=== PATIENT | female | born 1935 | race Caucasian/White ===

== ENCOUNTER 2016-12-23 10:31 | Inpatient (IN) | payer MEDICARE, OTHER ==
[~2016-12-23] VITALS: Ht 160 cm; Wt 49.9 kg
--- NOTE | 2016-12-23 10:40 | NUR ---
AAOX2, JOSE MIGUEL FROM [facility] C/O LEFT HIP PAIN, NO OBVIOUS TRAUMA OR INJURY NOTED. SKIN IS WARM AND DRY. ASSISTED TO HOSPITAL GOWN. PLACED ON MONITOR. WILL CONTINUOUSLY MONITOR THE PATIENT. DR KAUFMAN AT FOR EVAL.
[2016-12-23] MEDS ORDERED: OLANZAPINE 5 MG TABLET ONE ×2 (10:42→11:32)
[2016-12-23] MEDS ORDERED: LORAZEPAM 1 MG TABLET ONE (10:46)
[2016-12-23] MEDS ORDERED: OLANZAPINE 5 MG/TAB.RAPDIS PO ONE ×2 (11:00→11:30)
[2016-12-23] MEDS ORDERED: LORAZEPAM 1 MG TABLET PO ONE (11:00)
[2016-12-23] MEDS ORDERED: PANT40TA4 PO (11:06)
[2016-12-23] MEDS ORDERED: INSU100V11 SQ (11:06)
[2016-12-23] MEDS ORDERED: SITA1TAB2 PO (11:06)
[2016-12-23] MEDS ORDERED: GLIM2TAB PO (11:06)
[2016-12-23] MEDS ORDERED: IPRA3AMP IH (11:06)
[2016-12-23] MEDS ORDERED: ENOX40DI SQ (11:06)
[2016-12-23] MEDS ORDERED: ACET-868 PO (11:06)
[2016-12-23] MEDS ORDERED: BISA10SU8 RC (11:06)
[2016-12-23] MEDS ORDERED: MULT-659 PO (11:06)
[2016-12-23] MEDS ORDERED: SENN8.6T6 PO (11:06)
[2016-12-23] MEDS ORDERED: ESCI10TA PO (11:06)
[2016-12-23] MEDS ORDERED: INSU100V7 SQ (11:06)
[2016-12-23] MEDS ORDERED: MORP15TA10 PO (11:06)
[2016-12-23] MEDS ORDERED: DOCU-270 PO (11:06)
[2016-12-23] MEDS ORDERED: BLOO-668 IN (11:06)
[2016-12-23] MEDS ORDERED: OXYC-128 PO (11:06)
[2016-12-23] MEDS ORDERED: MAG30ORA PO (11:06)
[2016-12-23] MEDS ORDERED: BENZ1LOZ58 MM (11:06)
[2016-12-23] MEDS ORDERED: MAGN400O6 PO (11:06)
[2016-12-23] MEDS ORDERED: CALC500T13 PO (11:06)
[2016-12-23] MEDS ORDERED: NA P133E RC (11:06)
[2016-12-23] MEDS ORDERED: TRAZ-144 PO (11:06)
[2016-12-23] MEDS ORDERED: AMLO10TA4 PO (11:06)
[2016-12-23] MEDS ORDERED: LORA0.5T PO (11:06)
[2016-12-23] MEDS ORDERED: FERR325T28 PO (11:06)
[2016-12-23 11:07] LABS: CREATININE 0.7 mg/dL (0.6-1.3); POTASSIUM 3.9 mmol/L (3.5-5.1)
[2016-12-23 11:13] LABS: ALBUMIN 2.2 g/dL (3.4-5.0); BILIRUBIN,TOTAL 0.4 mg/dL (0.2-1.0); TOTAL PROTEIN, SERUM 6.9 g/dL (6.4-8.2)
[2016-12-23 11:15] LABS: BASOPHILS # (AUTO) 0.2 /CMM (0.0-0.2); BASOPHILS % (AUTO) 1.7 % (0.0-2.0); EOSINOPHILS # (AUTO) 0.2 /CMM (0.0-0.7); EOSINOPHILS % (AUTO) 1.5 % (0.0-6.0); HEMATOCRIT 31 % (33-45); HEMOGLOBIN 10.3 g/dL (11.5-14.8); LYMPHOCYTES # (AUTO) 0.8 /CMM (0.8-4.8); LYMPHOCYTES % (AUTO) 7.4 % (20.0-44.0); MEAN CORPUSCULAR HEMOGLOBIN 29 PG (26.0-33.0); MEAN CORPUSCULAR HGB CONC 33 g/dl (31.0-36.0); MEAN CORPUSCULAR VOLUME 86 fL (82-100); MONOCYTES # (AUTO) 1.1 /CMM (0.1-1.30); MONOCYTES % (AUTO) 9.6 % (2.0-12.0); NEUTROPHILS # (AUTO) 9.1 /CMM (1.8-8.9); NEUTROPHILS % (AUTO) 79.8 % (43.0-81.0); PLATELET COUNT (AUTO) 390 /CMM (150-450); RDW COEFFICIENT OF VARIATION 13.9 (11.5-15.0); RED BLOOD CELL COUNT(AUTO) 3.59 MIL/uL (4.0-5.2); WHITE BLOOD COUNT (AUTO) 11.4 K/uL (4.3-11.0)
--- NOTE | 2016-12-23 11:39 | NUR ---
[place] PAGED, DR. HENDRICKSON REED WORKER
--- NOTE | 2016-12-23 11:40 | NUR ---
CALLED NURSING SUP. FOR MS BED
--- NOTE | 2016-12-23 12:03 | NUR ---
URINE SAMPLE SENT
[2016-12-23 12:09] LABS: APPEARANCE,URINE Clear (CLEAR); BILIRUBIN,URINE Negative (NEGATIVE); BLOOD, URINE Negative Ery/uL (NEGATIVE); COLOR,URINE Yellow (YELLOW); KETONES,URINE Negative (NEGATIVE); LEUKOCYTE ESTERASE ,URINE Negative (NEGATIVE); NITRITE, URINE Negative (NEGATIVE); PROTEIN,URINE Negative (NEGATIVE); UGLUCOSE Negative (NEGATIVE); UROBILINOGEN,URINE 0.2 EU/dL (0.2)
--- NOTE | 2016-12-23 15:23 | NUR ---
REPORT GIVEN TO NURSE CAMEJO FOR CONTINUITY OF CARE
[2016-12-23 15:45] VITALS: BP 138/65
[2016-12-23] MEDS ORDERED: ACETAMINOPHEN 325 MG TABLET PO PRN ×2 (17:00→17:30)
[2016-12-23] MEDS ORDERED: MAGNESIUM HYDROXIDE 30 ML UDC PO PRN ×2 (17:00→17:30)
[2016-12-23] MEDS ORDERED: MAG HYDROX/AL HYDROX/SIMETH 30 ML UDC PO PRN ×2 (17:00→17:30)
[2016-12-23] MEDS ORDERED: ALBUTEROL FS 2.5 MG/0.5 ML VIAL.NEB NEB PRN (17:30)
[2016-12-23] MEDS ORDERED: IPRATROPIUM NEB FS 0.5 MG/2.5 ML AMPUL.NEB NEB PRN (17:30)
[2016-12-23] MEDS ORDERED: CALCIUM CARBONATE 500 MG TAB.CHEW PO PRN (17:30)
[2016-12-23] MEDS ORDERED: BISACODYL SUPP (10 MG) 10 MG/SUPP.RECT SUPP.RECT RC PRN (17:30)
[2016-12-23] MEDS ORDERED: NA PHOS,M-B/NA PHOS,DI-BA 1 EA ENEMA RC PRN (17:30)
[2016-12-23] MEDS ORDERED: Medication Not On Formulary EA (Ipratropium/Albuterol Sulfate (Duoneb 2.5-0.5 Mg/3 Ml So IH PRN (17:30)
[2016-12-23] MEDS ORDERED: MENTHOL/CETYLPYRD (CEPACOL) 1 LOZ LOZENGE MM PRN (17:30)
[2016-12-23] MEDS ORDERED: DEXTROSE 50%-WATER 50 ML DISP.SYRIN IV PRN (19:00)
--- NOTE | 2016-12-23 19:11 | NUR ---
GPS EMERGENCY DEPARTMENT TECHNICIAN NOTES: ADMITTED PATIENT FROM THE ER, ON HOLD FOR GD, ANXIOUS, RESTLESS, CONFUSED, YELLING, REFUSED SKIN ASSESSMENT, UNABLE TO PROVIDE ANY HISTORY. VS STABLE, NOT IN ANY PHYSICAL DISTRESS, FAMILY AT BEDSIDE. NOTIFIED, ADMITTING ORDERS RECEIVED, DR. HENDRICKSON NOTIFIED OF THIS ADMISSION. PATIENT'S BELONGINGS CHECKED FOR CONTRABAND. WILL CONTINUE TO MONITOR.
[2016-12-23 20:00] VITALS: BP 138/64
[2016-12-23] MEDS: MORPHINE SULFATE SR 15 MG TABLET.SA PO SCH (20:38)
[2016-12-23] MEDS: SENNOSIDES 8.6 MG TABLET PO SCH (21:33)
[2016-12-23] MEDS: BLOOD SUGAR DIAGNOSTIC 1 EACH STRIP IN SCH (21:41)
[2016-12-23] MEDS: oxyCODONE/APAP (5/325 MG) 1 UDTAB TABLET PO PRN (21:53)
[2016-12-23] MEDS: INSULIN DETEMIR 100 UNIT/ML CARTRIDGE SQ SCH (22:00)
[2016-12-23] MEDS: clonazePAM 0.5 MG TABLET PO PRN (23:09)
[2016-12-24] MEDS: oxyCODONE/APAP (5/325 MG) 1 UDTAB TABLET PO PRN ×3 (03:48→18:16)
[2016-12-24] MEDS: clonazePAM 0.5 MG TABLET PO PRN (05:12)
[2016-12-24 08:00] VITALS: BP 116/69
[2016-12-24] MEDS: INSULIN REGULAR, HUMAN 100 UNIT/ML 3 ML VIAL SQ PRN ×2 (08:25→23:02)
[2016-12-24] MEDS: BLOOD SUGAR DIAGNOSTIC 1 EACH STRIP IN SCH ×4 (08:26→22:50)
[2016-12-24] MEDS: PANTOPRAZOLE 40 MG TABLET.DR PO SCH (08:27)
[2016-12-24] MEDS: GLIMEPIRIDE 1 MG TABLET PO SCH (08:27)
[2016-12-24] MEDS: ENOXAPARIN SODIUM 40 MG/0.4 ML DISP.SYRIN SQ SCH (08:30)
[2016-12-24] MEDS: MORPHINE SULFATE SR 15 MG TABLET.SA PO SCH ×2 (08:30→21:46)
[2016-12-24] MEDS: MULTIVIT, IRON, MIN NO. 8, FA 1 TAB TABLET PO SCH (08:31)
[2016-12-24] MEDS: FERROUS SULFATE (325 MG) 325 MG/TAB TABLET PO SCH ×2 (08:31→17:26)
[2016-12-24] MEDS: AMLODIPINE BESYLATE 10 MG TABLET PO SCH (08:31)
[2016-12-24] MEDS: DOCUSATE SODIUM 100 MG CAPSULE PO SCH ×2 (08:31→17:26)
[2016-12-24] MEDS ORDERED: BLOOD SUGAR DIAGNOSTIC 1 EACH STRIP IN SCH (09:00)
[2016-12-24] MEDS ORDERED: LINAGLIPTIN 5 MG TABLET PO SCH (09:00)
[2016-12-24] MEDS: LINAGLIPTIN 5 MG TABLET PO SCH ×2 (11:40→17:26)
[2016-12-24] MEDS: METFORMIN 500 MG TABLET PO SCH ×2 (11:40→17:26)
[2016-12-24] MEDS: ESCITALOPRAM OXALATE (10 MG) 10 MG TABLET PO SCH (13:32)
[2016-12-24] MEDS: QUETIAPINE FUMARATE 25 MG TABLET PO SCH ×2 (13:32→21:59)
[2016-12-24 15:50] VITALS: BP 140/59
--- NOTE | 2016-12-24 19:35 | NUR ---
GPS/SENIOR MARKETING MANAGER; RECEIVED PT IN BED AWAKE, RESPONSIVE VERBALLY WITH CONFUSION. BREATHING NON LABORED. BED ON LOWER POSITION AND LOCKED FOR SAFETY. SIDE RAILS ARE UP FOR SAFETY. CONTINUE TO MONITOR.
[2016-12-24 20:00] VITALS: BP 119/51
[2016-12-24] MEDS: Z GUARD REMEDY 2 OZ OINT TP SCH (21:55)
[2016-12-24] MEDS: SENNOSIDES 8.6 MG TABLET PO SCH (21:59)
--- NOTE | 2016-12-24 22:50 | NUR ---
GPS/JOB TRAINER; BS 147 COVERED WITH REGULAR INSULIN 2 UNITS SQ. WILL CONTINUE TO MONITOR.
[2016-12-24] MEDS ORDERED: INSULIN DETEMIR 100 UNIT/ML CARTRIDGE SQ ONE (23:10)
[2016-12-24] MEDS: INSULIN DETEMIR 100 UNIT/ML CARTRIDGE SQ SCH (23:19)
--- NOTE | 2016-12-25 04:35 | NUR ---
GPS/DIAGNOSTIC MEDICAL SONOGRAPHER; C/O PAIN TO HER NECK , LOWER BACK AND BOTH CECILIA. BP 141/ 66 , P 93 , O2 SAT ON RA 95 %. PERCOSET 5- 325 MG 1 TAB. PO Q4 PRN GIVEN ORDERED. WILL RE ASSESS.
[2016-12-25] MEDS: oxyCODONE/APAP (5/325 MG) 1 UDTAB TABLET PO PRN ×4 (04:38→23:23)
--- NOTE | 2016-12-25 07:00 | NUR ---
SLEPT FOR 5 HOURS. VERY NEEDY. WILL ENDORSE TO THE DAY SHIFT NURSE.
[2016-12-25 08:00] VITALS: BP 140/63
[2016-12-25] MEDS: PANTOPRAZOLE 40 MG TABLET.DR PO SCH (08:11)
[2016-12-25] MEDS: BLOOD SUGAR DIAGNOSTIC 1 EACH STRIP IN SCH ×4 (08:12→21:20)
[2016-12-25] MEDS: GLIMEPIRIDE 1 MG TABLET PO SCH (08:12)
[2016-12-25] MEDS: ESCITALOPRAM OXALATE (10 MG) 10 MG TABLET PO SCH (09:06)
[2016-12-25] MEDS: QUETIAPINE FUMARATE 25 MG TABLET PO SCH ×2 (09:06→16:49)
[2016-12-25] MEDS: LINAGLIPTIN 5 MG TABLET PO SCH ×2 (09:06→16:49)
[2016-12-25] MEDS: DOCUSATE SODIUM 100 MG CAPSULE PO SCH ×2 (09:06→16:49)
[2016-12-25] MEDS: MULTIVIT, IRON, MIN NO. 8, FA 1 TAB TABLET PO SCH (09:06)
[2016-12-25] MEDS: FERROUS SULFATE (325 MG) 325 MG/TAB TABLET PO SCH ×2 (09:07→16:49)
[2016-12-25] MEDS: METFORMIN 500 MG TABLET PO SCH ×2 (09:07→16:49)
[2016-12-25] MEDS: MORPHINE SULFATE SR 15 MG TABLET.SA PO SCH ×2 (09:08→21:19)
[2016-12-25] MEDS: AMLODIPINE BESYLATE 10 MG TABLET PO SCH (09:09)
[2016-12-25] MEDS: ENOXAPARIN SODIUM 40 MG/0.4 ML DISP.SYRIN SQ SCH (09:10)
[2016-12-25] MEDS: clonazePAM 0.5 MG TABLET PO PRN (09:43)
[2016-12-25] MEDS: Z GUARD REMEDY 2 OZ OINT TP SCH ×2 (09:43→21:20)
--- NOTE | 2016-12-25 09:48 | NUR ---
STUDENT TEACHER-NOTES NOTED PATIENT VERY ANXIOUS ,CRYING. STATED " GIVE ME SOMETHING TO CALM ME DOWN". CLONOPIN 0.25MG P.O GIVEN PRN ORDER. WILL CONT. MONITORING FOR SAFETY AND BEHAVIOR.
--- NOTE | 2016-12-25 12:15 | NUR ---
FUND DIRECTOR-NOTES PATIENT COMPLAINED OF 6/10 LOWER BACK PAIN. PERCOCET 5MG/325MG P.O GIVEN PRN ORDER. WILL CONT. MONITORING FOR SAFETY AND BEHAVIOR.
[2016-12-25 16:00] VITALS: BP 131/59
--- NOTE | 2016-12-25 16:53 | NUR ---
LINEWORKER-NOTES PATIENT COMPLAINED OF 9/10 GENERALIZED BODY PAIN. PERCOCET 5MG/325MG P.O GIVEN PRN ORDER. WILL CONT. MONITORING FOR SAFETY.
--- NOTE | 2016-12-25 17:53 | NUR ---
SHAREPOINT NET DEVELOPER-NOTES PATIENT BLOOD SUGAR WAS 49MG/DL , PATIENT WAKE,ALERT DENIES ANY DISCOMFORT AT THIS TIME , NO S/SX OF HYPOGLYCEMIA. GAVE ORANGE JUICE AND WILL RECHECK BLOOD SUGAR AGAIN IN 30 MINS. CHARGE NURSE AWARE.
--- NOTE | 2016-12-25 18:12 | NUR ---
CENTRIFUGE OPERATOR-NOTES PATIENT BLOOD SUGAR AT THIS TIME WAS 109MG/DL, PATIENT AWAKE ALERT EATING HER DINNER AT THIS TIME.
[2016-12-25 20:45] VITALS: BP 125/60
[2016-12-25] MEDS: SENNOSIDES 8.6 MG TABLET PO SCH (21:20)
[2016-12-25] MEDS: INSULIN DETEMIR 100 UNIT/ML CARTRIDGE SQ SCH (21:24)
[2016-12-25] MEDS: INSULIN REGULAR, HUMAN 100 UNIT/ML 3 ML VIAL SQ PRN (21:25)
[2016-12-26] MEDS: clonazePAM 0.5 MG TABLET PO PRN ×3 (00:33→23:22)
--- NOTE | 2016-12-26 00:33 | NUR ---
GPS RN: PATIENT OBSERVED TO BE VERY NEEDY, HYPERVERBAL. TALKS ABOUT ONE TOPIC TO ANOTHER. KLONOPIN 0.25 MG GIVEN ORALLY PRN. WILL CONTINUE TO MONITOR PATIENT'S MOOD AND BEHAVIOR.
[2016-12-26] MEDS: oxyCODONE/APAP (5/325 MG) 1 UDTAB TABLET PO PRN ×4 (04:11→19:46)
[2016-12-26 08:00] VITALS: BP 144/73
[2016-12-26] MEDS: MORPHINE SULFATE SR 15 MG TABLET.SA PO SCH ×2 (08:07→21:01)
[2016-12-26] MEDS: GLIMEPIRIDE 1 MG TABLET PO SCH (08:09)
[2016-12-26] MEDS: QUETIAPINE FUMARATE 25 MG TABLET PO SCH ×3 (08:09→16:31)
[2016-12-26] MEDS: PANTOPRAZOLE 40 MG TABLET.DR PO SCH (08:09)
[2016-12-26] MEDS: METFORMIN 500 MG TABLET PO SCH ×2 (08:09→16:31)
[2016-12-26] MEDS: FERROUS SULFATE (325 MG) 325 MG/TAB TABLET PO SCH ×2 (08:09→16:31)
[2016-12-26] MEDS: DOCUSATE SODIUM 100 MG CAPSULE PO SCH ×2 (08:10→16:31)
[2016-12-26] MEDS: AMLODIPINE BESYLATE 10 MG TABLET PO SCH (08:10)
[2016-12-26] MEDS: MULTIVIT, IRON, MIN NO. 8, FA 1 TAB TABLET PO SCH (08:10)
[2016-12-26] MEDS: LINAGLIPTIN 5 MG TABLET PO SCH ×2 (08:10→16:31)
[2016-12-26] MEDS: ESCITALOPRAM OXALATE (10 MG) 10 MG TABLET PO SCH (08:10)
[2016-12-26] MEDS: ENOXAPARIN SODIUM 40 MG/0.4 ML DISP.SYRIN SQ SCH (08:17)
[2016-12-26] MEDS: Z GUARD REMEDY 2 OZ OINT TP SCH ×2 (08:55→22:36)
[2016-12-26] MEDS: BLOOD SUGAR DIAGNOSTIC 1 EACH STRIP IN SCH ×4 (09:10→22:35)
--- NOTE | 2016-12-26 09:52 | NUR ---
GPS/RN PATIENT PRESENTS WITH ACUTE ANXIETY, YELLING, SCREAMING, VERBALLY ABUSIVE, ADMINISTERED KLONOPIN PO ORDERED, WILL CONTINUE TO MONITOR.
--- NOTE | 2016-12-26 10:40 | NUR ---
GPS/RN PATIENT REPORTS 10/10 NECK/BACK PAIN, ADMINISTERED PERCOCET PO ORDERED, WILL CONTINUE TO MONITOR.
--- NOTE | 2016-12-26 12:21 | NUR ---
Initial Discharge Plan: Patient resides at [address] [place] [address]([phone]). railroad worker attempted to contact patient's son Cathy Shipley however, he was unavailable, social secretary left a message with her contact information. railroad worker attempted to contact patient's Scott Shipley , however he was unavailable, social secretary unable to leave a voicemail as there was no answering machine available. railroad worker spoke to Graciela from the facility who stated that she would have to contact her assistant community director before confirming if patient is being accepted back to the facility upon discharge. railroad worker will help form a safe and proper discharge.
[2016-12-26] MEDS: INSULIN REGULAR, HUMAN 100 UNIT/ML 3 ML VIAL SQ PRN ×2 (12:22→22:40)
--- NOTE | 2016-12-26 14:55 | NUR ---
GPS/RN PATIENT REPORTS 03/09 NECK/BACK PAIN, ADMINISTERED PERCOCET 5/325 ORDERED, WILL CONTINUE TO MONITOR.
[2016-12-26 16:00] VITALS: BP 113/54
[2016-12-26] MEDS: SENNOSIDES 8.6 MG TABLET PO SCH (21:01)
[2016-12-26 21:08] VITALS: BP 139/69
[2016-12-26] MEDS: TEMAZEPAM 7.5 MG CAPSULE PO PRN (22:04)
[2016-12-26] MEDS: INSULIN DETEMIR 100 UNIT/ML CARTRIDGE SQ SCH (22:39)
[2016-12-27] MEDS: oxyCODONE/APAP (5/325 MG) 1 UDTAB TABLET PO PRN ×3 (01:54→16:14)
--- NOTE | 2016-12-27 02:15 | NUR ---
GPS RN NOTE: PATIENT C/O FEELING COLD AND HAVING PAIN ALL OVER HER NECK, ARMS, BACK AND BUTTOCK 03/09. ASSESSED THE PATIENT, PATIENT NOTED FOR SWEATING PROFUSELY, V/S XZ=697/80, P=86 T=97.8 ORALLY R=24, NO SOB, NO ACUTE DISTRESS, BREATHING EVEN AND UNLABORED. ALERT AND ORIENTED X 3, CRYING, NEEDY, THIRSTY, BLOOD SUGAR CHECK = 56. SNACKS GIVEN, ORANGE JUICE WITH SUGAR GIVEN AND TOLERATED WELL. OXYCODONE 5-325MG PO GIVEN ORDERED. KEPT CLEAN, DRY AND COMFORTABLE, WILL CONTINUE TO MONITOR.
--- NOTE | 2016-12-27 03:03 | NUR ---
GPS RN NOTE: PATIENT BLOOD SUGAR = 138, NO SOB, NO ACUTE DISTRESS, BREATHING EVEN AND UNLABORED, NO S/S OF HYPOGLYCEMIA AND HYPERGLYCEMIA NOTED. KEPT CLEAN, DRY AND COMFORTABLE, WILL CONTINUE TO MONITOR
[2016-12-27] MEDS: clonazePAM 0.5 MG TABLET PO PRN ×3 (03:55→17:12)
[2016-12-27] MEDS: PANTOPRAZOLE 40 MG TABLET.DR PO SCH (07:55)
[2016-12-27] MEDS: BLOOD SUGAR DIAGNOSTIC 1 EACH STRIP IN SCH ×4 (07:56→21:18)
[2016-12-27] MEDS: GLIMEPIRIDE 1 MG TABLET PO SCH (07:56)
[2016-12-27 08:00] VITALS: BP 115/97
[2016-12-27] MEDS: MORPHINE SULFATE SR 15 MG TABLET.SA PO SCH ×2 (08:24→21:17)
[2016-12-27] MEDS: MULTIVIT, IRON, MIN NO. 8, FA 1 TAB TABLET PO SCH (09:00)
[2016-12-27] MEDS: Z GUARD REMEDY 2 OZ OINT TP SCH ×2 (09:00→21:19)
[2016-12-27] MEDS: DOCUSATE SODIUM 100 MG CAPSULE PO SCH ×2 (09:00→16:15)
[2016-12-27] MEDS: QUETIAPINE FUMARATE 25 MG TABLET PO SCH ×3 (09:00→16:13)
[2016-12-27] MEDS: ESCITALOPRAM OXALATE (10 MG) 10 MG TABLET PO SCH (09:00)
[2016-12-27] MEDS: AMLODIPINE BESYLATE 10 MG TABLET PO SCH (09:00)
[2016-12-27] MEDS: METFORMIN 500 MG TABLET PO SCH ×2 (09:00→16:13)
[2016-12-27] MEDS: LINAGLIPTIN 5 MG TABLET PO SCH ×2 (09:00→16:13)
[2016-12-27] MEDS: ENOXAPARIN SODIUM 40 MG/0.4 ML DISP.SYRIN SQ SCH (09:00)
[2016-12-27] MEDS: FERROUS SULFATE (325 MG) 325 MG/TAB TABLET PO SCH ×2 (09:00→16:12)
--- NOTE | 2016-12-27 09:43 | NUR ---
GPS RN NOTE: PT IN BED SITTING REFUSING AM MEDICATIONS AT THIS TIME PT STATING " I WANT MY FAMILY AND MY TO COME, I DONT NEED ANY MEDICATIONS " " GO CHECK IF MY HERE " VS STABLE PT WAS CHANGE AND Z GUARD APPLIED WILL CONTINUE MONITORING FOR SAFETY AND BEHAVIOR Q 15 MIN
--- NOTE | 2016-12-27 09:46 | NUR ---
GPS RN NOTE: PT REFUSED TO EAT BREAKFAST BS 152 MG/DL INSULIN NOT GIVEN PER ORDER WILL CONTINUE MONITORING
--- NOTE | 2016-12-27 10:10 | NUR ---
GPS RN NOTE: OFFERED PT PAIN MEDICATION PT CONTINUE TO REFUSING AND WAITING FOR FAMILY MEETING
--- NOTE | 2016-12-27 11:00 | NUR ---
GPS RN NOTE: AT THE SIDE,ASK PATIENT TO TAKE AM MEDICATION AND PAIN MEDICATIONS, PT CONTINUE TO REFUSING NO S/S DISTRESS NOTED PATIENT WAITING TO TALK WITH MD
--- NOTE | 2016-12-27 11:34 | NUR ---
Psychosocial assessment was reviewed and I concur with the information provided. No changes are necessary. Kaylin Jones, [facility] [id number] Addendum: 12/27/16 at 1134 by KAYLIN JONES SW Amended: Links added.
--- NOTE | 2016-12-27 12:10 | NUR ---
GPS RN NOTE: PATIENT COMPLAINED OF 9/10 GENERALIZED BODY PAIN. PERCOCET 5MG/325MG P.O GIVEN PRN ORDER. WILL CONT. MONITORING FOR SAFETY.
--- NOTE | 2016-12-27 12:31 | NUR ---
GPS RN NOTE: PATIENT VERY ANXIOUS ,CRYING. . KLONOPIN 0.25MG P.O GIVEN PRN ORDER. WILL CONT. MONITORING FOR SAFETY AND BEHAVIOR.
--- NOTE | 2016-12-27 12:40 | NUR ---
GPS RN NOTE: PATIENT DROP KLONOPIN ON THE FLOOR FAMILY AT THE SIDE WILL WAS WAISTED
--- NOTE | 2016-12-27 14:50 | NUR ---
GPS RN NOTE: PATIENT SCREAMING AND YELLING REQUESTING TO TALK TO SECURITY CALLED SECURITY TO COME PER PT REQUEST
[2016-12-27 16:00] VITALS: BP 119/75
--- NOTE | 2016-12-27 17:03 | NUR ---
packing room worker spoke to October from admissions at [facility] [address] [facility] [place] [address]([phone]) who stated that they are unable to accept the patient back as the family was not happy with the facility and there were many problems with the family. Patient will need placement. psychosocial rehabilitation counselor will follow-up
--- NOTE | 2016-12-27 17:13 | NUR ---
GPS RN NOTE: PATIENT ANXIOUS AND RESTLESS KLONOPIN 0.25 MG PO Q 4 HR GIVEN PER ORDER WILL CONTINUE MONITORING FOR SAFETY AND BEHAVIOR Q 15 MIN
[2016-12-27] MEDS: INSULIN REGULAR, HUMAN 100 UNIT/ML 3 ML VIAL SQ PRN (18:22)
--- NOTE | 2016-12-27 19:30 | NUR ---
GPS RN NOTE, RECEIVED PATIENT AWAKE AND IN BED, PATIENT HAS A COMPLAINT OF LOWER BACK PAIN AT 5 OUT 10 AT THIS TIME. PATIENT IS BEING TREAT WITH ORAL PAIN MEDICATION FOR THIS PAIN. PATIENT IS DISPLAYING NO S/S OF APPARENT DISTRESS AT THIS TIME. PATIENT BREATHING IS UNLABORED WITH EQUAL RISE AND FALL OF THE CHEST. PATIENT IS ALERT AND ORIENTED X 2 ON ROOM AIR WITH A SPO2 94%. PATIENT SELECTIVE WITH MEDICATION, ANXIOUS, UNCOOPERATIVE, CONFUSED AT TIMES, AND NEEDS REORIENTATION. PATIENT DENIES SUICIDE AND HOMICIDAL IDEATIONS AT THIS TIME. PATIENT ASSISTED WITH TURNING AND REPOSITIONING Q2HR AND PRN FOR COMFORT AND CIRCULATION. PATIENT HAS NO NEEDS AT THIS TIME. PATIENT EDUCATED ON THE USE OF THE CALL JEROME. PATIENT BED SIDE RAILS UP X2 FOR SAFETY, BED IS LOCKED AND LOW WILL CONTINUE TO MONITOR AND MAINTAIN SAFETY.
[2016-12-27 20:00] VITALS: BP 109/64
[2016-12-27] MEDS: SENNOSIDES 8.6 MG TABLET PO SCH (21:17)
--- NOTE | 2016-12-27 21:17 | NUR ---
GPS RN NOTE, PATIENT HAS A COMPLAINT OF LOWER BSCK PAIN AT 5 OUT 10 ON THE PAIN SCALE AND WOULD LIKE MEDICATION AT THIS TIME. PATIENT VITAL SIGNS ARE STABLE. GAVE MS COTIN 15MG PO Q12HR ORDERED. WILL REASSESS PAIN AND I WILL CONTINUE TO MONITOR THIS PATIENT.
--- NOTE | 2016-12-27 21:18 | NUR ---
GPS RN NOTE, PERFORMED ACCU-CHECK ON PATIENT WITH A BLOOD SUGAR RESULT OF 121. NO REGULAR INSULIN GIVEN AT THIS TIME. 17 UNITS OF LEVEMIR WITH JUICE AND TWO PUDDINGS A SNACK GIVEN. WILL CONTINUE TO MONITOR THIS PATIENT.
[2016-12-27] MEDS: INSULIN DETEMIR 100 UNIT/ML CARTRIDGE SQ SCH (21:37)
[2016-12-28] MEDS: BLOOD SUGAR DIAGNOSTIC 1 EACH STRIP IN SCH ×4 (07:25→21:15)
[2016-12-28] MEDS: INSULIN REGULAR, HUMAN 100 UNIT/ML 3 ML VIAL SQ PRN ×4 (07:26→21:18)
[2016-12-28] MEDS: Z GUARD REMEDY 2 OZ OINT TP SCH ×2 (07:27→21:15)
[2016-12-28] MEDS: DOCUSATE SODIUM 100 MG CAPSULE PO SCH ×2 (07:39→17:24)
[2016-12-28] MEDS: PANTOPRAZOLE 40 MG TABLET.DR PO SCH (07:39)
[2016-12-28] MEDS: FERROUS SULFATE (325 MG) 325 MG/TAB TABLET PO SCH ×2 (07:39→17:24)
[2016-12-28] MEDS: MULTIVIT, IRON, MIN NO. 8, FA 1 TAB TABLET PO SCH (07:40)
[2016-12-28] MEDS: GLIMEPIRIDE 1 MG TABLET PO SCH (07:40)
[2016-12-28] MEDS: MORPHINE SULFATE SR 15 MG TABLET.SA PO SCH ×2 (07:40→21:15)
[2016-12-28] MEDS: ESCITALOPRAM OXALATE (10 MG) 10 MG TABLET PO SCH (07:40)
[2016-12-28] MEDS: AMLODIPINE BESYLATE 10 MG TABLET PO SCH (07:41)
[2016-12-28] MEDS: QUETIAPINE FUMARATE 25 MG TABLET PO SCH ×3 (07:41→17:24)
[2016-12-28] MEDS: LINAGLIPTIN 5 MG TABLET PO SCH ×2 (07:41→17:24)
[2016-12-28] MEDS: METFORMIN 500 MG TABLET PO SCH ×2 (07:41→17:24)
[2016-12-28] MEDS: ENOXAPARIN SODIUM 40 MG/0.4 ML DISP.SYRIN SQ SCH (07:42)
[2016-12-28 08:00] VITALS: BP 109/59
[2016-12-28] MEDS: clonazePAM 0.5 MG TABLET PO PRN ×2 (10:33→14:24)
[2016-12-28] MEDS: oxyCODONE/APAP (5/325 MG) 1 UDTAB TABLET PO PRN ×2 (10:33→14:25)
--- NOTE | 2016-12-28 14:03 | NUR ---
creamery worker faxed initial review packet to Priscilla Vail from admissions from [facility] [address] [facility] [address] (phone: [phone]/ fax: [phone]). creamery worker will follow-up.
--- NOTE | 2016-12-28 14:05 | NUR ---
hotel maintenance worker faxed Gwen from admissions for [facility] [address] [facility] [address] ( /fax: [phone]). hotel maintenance worker will follow-up.
--- NOTE | 2016-12-28 14:07 | NUR ---
WOUND CARE CONSULT: PT PRESENTS WITH RASH TO BUTTOCKS AND PERINEUM. PT IS INCONTINENT. RECOMMENDATIONS MADE FOR SKIN PROTECTION AND RASH CARE. DISCUSSED WITH NURSING STAFF. WILL SEE PRN. VEGA IN AGREEMENT WITH PLAN OF CARE. Addendum: 12/28/16 at 1408 by KEVIN BOTELLO WNDNU Amended: Links added.
[2016-12-28] MEDS: CLOTRIMAZOLE 1% 15 GM TUBE TP SCH ×2 (15:00→17:38)
[2016-12-28 16:20] VITALS: BP 107/52
--- NOTE | 2016-12-28 18:47 | NUR ---
Pt is being turned and repositioned every 2 hours and as needed.
[2016-12-28 20:00] VITALS: BP 112/64
[2016-12-28 20:24] VITALS: BP 112/64
[2016-12-28] MEDS: SENNOSIDES 8.6 MG TABLET PO SCH (21:15)
[2016-12-28] MEDS: INSULIN DETEMIR 100 UNIT/ML CARTRIDGE SQ SCH (21:17)
[2016-12-29] MEDS: oxyCODONE/APAP (5/325 MG) 1 UDTAB TABLET PO PRN ×3 (01:18→17:17)
[2016-12-29] MEDS: clonazePAM 0.5 MG TABLET PO PRN ×3 (05:17→15:48)
--- NOTE | 2016-12-29 05:28 | NUR ---
GPS/SERVICE CLERK NOTES: PT. ANXIOUS AND AGITATED. CONFUSED AND MAKING FALSE ACCUSATIONS AGAINST STAFF REGARDING NOT BEING CHANGED AND GIVEN PAIN MEDICATIONS. OFFERED CLONAZEPAM 0.25 PO PRN ORDERED. PT. REFUSED AND STATES THAT WE ARE TRYING TO KILL HER. PT. NEEDS CONSTANT REDIRECTION. EXPLAINED TO PT. THAT SHE WAS GIVEN HER PAIN MEDICATION AND WAS NOT YET DUE, BUT PT. STILL INSISTING THAT SHE DID NOT RECEIVE IT AND WANTS HER PAIN MEDICATION EVERY HOUR. EXPLAINED AND EDUCATED PT. ON THE FREQUENCY OF PAIN MEDICATION BUT PT. BECOMES EXTREMELY AGITATED AND KEEP INSISTING SHE HAS NOT RECEIVED IT.
[2016-12-29] MEDS: BLOOD SUGAR DIAGNOSTIC 1 EACH STRIP IN SCH ×4 (07:30→22:13)
[2016-12-29] MEDS: DOCUSATE SODIUM 100 MG CAPSULE PO SCH ×2 (08:34→17:16)
[2016-12-29] MEDS: LINAGLIPTIN 5 MG TABLET PO SCH ×2 (08:34→17:17)
[2016-12-29] MEDS: QUETIAPINE FUMARATE 25 MG TABLET PO SCH ×3 (08:34→17:16)
[2016-12-29] MEDS: PANTOPRAZOLE 40 MG TABLET.DR PO SCH (08:35)
[2016-12-29] MEDS: MORPHINE SULFATE SR 15 MG TABLET.SA PO SCH ×2 (08:35→22:09)
[2016-12-29] MEDS: ESCITALOPRAM OXALATE (10 MG) 10 MG TABLET PO SCH (08:35)
[2016-12-29] MEDS: GLIMEPIRIDE 1 MG TABLET PO SCH (08:35)
[2016-12-29] MEDS: METFORMIN 500 MG TABLET PO SCH ×2 (08:35→17:17)
[2016-12-29] MEDS: FERROUS SULFATE (325 MG) 325 MG/TAB TABLET PO SCH ×2 (08:35→17:17)
[2016-12-29] MEDS: MULTIVIT, IRON, MIN NO. 8, FA 1 TAB TABLET PO SCH (08:35)
[2016-12-29] MEDS: ENOXAPARIN SODIUM 40 MG/0.4 ML DISP.SYRIN SQ SCH (08:42)
[2016-12-29] MEDS: CLOTRIMAZOLE 1% 15 GM TUBE TP SCH ×2 (08:43→17:18)
[2016-12-29] MEDS: AMLODIPINE BESYLATE 10 MG TABLET PO SCH (08:44)
[2016-12-29] MEDS: Z GUARD REMEDY 2 OZ OINT TP SCH ×2 (08:50→22:07)
[2016-12-29 08:56] VITALS: BP 147/85
--- NOTE | 2016-12-29 09:57 | NUR ---
GPS RN: PATIENT IS RESTLESS, NEEDY, HYPERVERBAL, AGITATED. HARD TO REDIRECT, ADMINISTERED KLONOPIN 0.25MG PO ORDERED. VS STABLE, CONTINUE TO MONITOR.
--- NOTE | 2016-12-29 11:50 | NUR ---
GPS RN: BS 67MG/DL, NO S/S O HYPOGLYCEMIA, ORANG JUICE PROVIDED. LUNCH WILL BE SERVED SHORTLY.
--- NOTE | 2016-12-29 13:25 | NUR ---
balcony worker spoke Gwen from admissions [place] [facility] [address] [facility] [address] ( /fax: [phone]) Gwen stated that they had no bed availability and could not take the patient at this time.
--- NOTE | 2016-12-29 13:30 | NUR ---
smooth and burr worker composites spoke to Priscilla Vail from admissions from [facility] [address] [facility] [address] (phone: [phone]/ fax: [phone]). who stated that they could not take the patient due to her behavior.
--- NOTE | 2016-12-29 15:50 | NUR ---
GPS RN: ADMINISTERED KLONOPIN 0.25MG PO ORDERED FOR INCREASED ANXIETY AND AGITATION. VS STABLE, CONTINUE TO MONITOR.
[2016-12-29 16:24] VITALS: BP 123/74
[2016-12-29] MEDS: DIVALPROEX SODIUM 125 MG CAP.SPRINK PO SCH (17:16)
--- NOTE | 2016-12-29 19:35 | NUR ---
GPS RN NOTE, RECEIVED PATIENT IN BED, RESTING COMFORTABLY AT THIS TIME. DAUGHTER IN LAW AT BED SIDE. NO DISTRESS, NO SOB NOTED AT THIS TIME. PATIENT IS ALERT AND ORIENTED X 2. ON ROOM AIR WITH A SPO2 97%. VERBALLY RESPONSIVE. PATIENT DENIES SUICIDAL IDEATIONS AT THIS TIME. DENIES ANY PAIN OR DISCOMFORT AT THIS TIME. ALL NEEDS ATTENDED. SAFETY PRECAUTIONS OBSERVED. WILL CONTINUE TO MONITOR.
[2016-12-29 20:00] VITALS: BP 104/58
--- NOTE | 2016-12-29 21:17 | NUR ---
PT'S BLOOD SUGAR IS 81 NO COVERAGE OF REGULAR INSULIN GIVEN. AND LEVEMIR 17 UNITS HELD AT THIS TIME, [facility] SYKES INFORMED. WILL MONITOR PT .
[2016-12-29] MEDS: INSULIN DETEMIR 100 UNIT/ML CARTRIDGE SQ SCH (22:00)
[2016-12-29] MEDS: SENNOSIDES 8.6 MG TABLET PO SCH (22:07)
[2016-12-30 08:00] VITALS: BP 106/60
[2016-12-30] MEDS: BLOOD SUGAR DIAGNOSTIC 1 EACH STRIP IN SCH ×4 (08:49→21:09)
[2016-12-30] MEDS: DOCUSATE SODIUM 100 MG CAPSULE PO SCH (08:52)
[2016-12-30] MEDS: ESCITALOPRAM OXALATE (10 MG) 10 MG TABLET PO SCH (08:52)
[2016-12-30] MEDS: GLIMEPIRIDE 1 MG TABLET PO SCH (08:52)
[2016-12-30] MEDS: DIVALPROEX SODIUM 125 MG CAP.SPRINK PO SCH ×3 (08:52→16:14)
[2016-12-30] MEDS: QUETIAPINE FUMARATE 25 MG TABLET PO SCH ×3 (08:52→16:14)
[2016-12-30] MEDS: MORPHINE SULFATE SR 15 MG TABLET.SA PO SCH ×2 (08:52→20:41)
[2016-12-30] MEDS: LINAGLIPTIN 5 MG TABLET PO SCH ×2 (08:53→16:14)
[2016-12-30] MEDS: AMLODIPINE BESYLATE 10 MG TABLET PO SCH (08:53)
[2016-12-30] MEDS: MULTIVIT, IRON, MIN NO. 8, FA 1 TAB TABLET PO SCH (08:53)
[2016-12-30] MEDS: METFORMIN 500 MG TABLET PO SCH ×2 (08:53→16:14)
[2016-12-30] MEDS: PANTOPRAZOLE 40 MG TABLET.DR PO SCH (08:53)
[2016-12-30] MEDS: FERROUS SULFATE (325 MG) 325 MG/TAB TABLET PO SCH ×2 (08:53→16:14)
[2016-12-30] MEDS: Z GUARD REMEDY 2 OZ OINT TP SCH ×2 (08:54→21:08)
[2016-12-30] MEDS: CLOTRIMAZOLE 1% 15 GM TUBE TP SCH ×2 (08:54→16:14)
[2016-12-30] MEDS: ENOXAPARIN SODIUM 40 MG/0.4 ML DISP.SYRIN SQ SCH (08:55)
--- NOTE | 2016-12-30 10:55 | NUR ---
RN-CO: Patient's became inappropriate to the charge nurse. Stated " you look pretty when you are smiling " and held charge nurse face without permission.
[2016-12-30] MEDS: oxyCODONE/APAP (5/325 MG) 1 UDTAB TABLET PO PRN (11:56)
--- NOTE | 2016-12-30 12:00 | NUR ---
GPS/RN PERCOCET PO/PRN GIVEN FOR PAIN REQUESTED BY THE PT
[2016-12-30] MEDS ORDERED: DOCUSATE SODIUM 100 MG CAPSULE PO PRN (14:00)
--- NOTE | 2016-12-30 15:44 | NUR ---
GPS/RN NEW ORDER RECEIVED FROM DR VALADEZ TO LIMIT THE NUMBER OF HOURS TO TWO A DAY AND WITHIN VISITING HOURS ONLY.
[2016-12-30 16:00] VITALS: BP 119/70
--- NOTE | 2016-12-30 17:11 | NUR ---
GPS/RN PT REFUSED ACCUCHECK OFFERED X3.
--- NOTE | 2016-12-30 19:40 | NUR ---
RN OPENING NOTES RECEIVED REPORT FROM BASHIR LAGOS RN. FOUND Pt AWAKE IN BED. Pt IS A/OX2, MED COMPLIANT. Pt REQUESTED TO TAKE NIGHT MEDS A LITTLE EARLIER SO THAT SHE CAN GO TO BED AND GET SOME REST. Pt ALSO REQUESTED FOR HER RESTORIL. NO S/S OF ACUTE DISTRESS OR SOB NOTED. SAFETY MEASURES IN PLACE. WILL CONTINUE TO MONITOR Pt THROUGHOUT THE NIGHT FOR SAFETY.
[2016-12-30 20:00] VITALS: BP 115/66
[2016-12-30] MEDS: SENNOSIDES 8.6 MG TABLET PO SCH (20:41)
[2016-12-30] MEDS: TEMAZEPAM 7.5 MG CAPSULE PO PRN (21:11)
[2016-12-30] MEDS: INSULIN DETEMIR 100 UNIT/ML CARTRIDGE SQ SCH (21:11)
--- NOTE | 2016-12-30 21:11 | NUR ---
RN NOTES ADMINISTERED RESTORIL 7.5MG PER Pt REQUEST TO HELP HER SLEEP AT NIGHT.
--- NOTE | 2016-12-30 21:13 | NUR ---
ACCUCHECK BG 102. WITH HELD LEVEMIR OF 17UN DUE TO LOW BG. NO ADDITIONAL INSULIN COVERAGE NEEDED. WILL CONTINUE TO MONITOR Pt.
[2016-12-31] MEDS: oxyCODONE/APAP (5/325 MG) 1 UDTAB TABLET PO PRN ×2 (02:38→11:58)
--- NOTE | 2016-12-31 02:38 | NUR ---
RN NOTES Pt C/O 10/10 PAIN ON HER HIP, NECK, AND LOWER BACK. ADMINISTERED PRN PAIN MED PERCOCET. WILL REASSESS Pt's PAIN.
--- NOTE | 2016-12-31 06:34 | NUR ---
RN CLOSING NOTES NO SIGNIFICANT CHANGES DURING THE NIGHT. NO S/S OF ACUTE DISTRESS OR SOB NOTED. ALL NEEDS MET AND ATTENDED TO. SAFETY MEASURES CARRIED OUT. WILL ENDORSE TO DAYSHIFT RN FOR Pt's ROCIO.
[2016-12-31 08:00] VITALS: BP 146/63
[2016-12-31] MEDS: DIVALPROEX SODIUM 125 MG CAP.SPRINK PO SCH ×3 (08:19→17:29)
[2016-12-31] MEDS: BLOOD SUGAR DIAGNOSTIC 1 EACH STRIP IN SCH ×4 (08:19→21:37)
[2016-12-31] MEDS: AMLODIPINE BESYLATE 10 MG TABLET PO SCH (08:20)
[2016-12-31] MEDS: GLIMEPIRIDE 1 MG TABLET PO SCH (08:20)
[2016-12-31] MEDS: QUETIAPINE FUMARATE 25 MG TABLET PO SCH ×3 (08:20→17:29)
[2016-12-31] MEDS: METFORMIN 500 MG TABLET PO SCH ×2 (08:20→17:29)
[2016-12-31] MEDS: PANTOPRAZOLE 40 MG TABLET.DR PO SCH (08:20)
[2016-12-31] MEDS: MULTIVIT, IRON, MIN NO. 8, FA 1 TAB TABLET PO SCH (08:20)
[2016-12-31] MEDS: FERROUS SULFATE (325 MG) 325 MG/TAB TABLET PO SCH ×2 (08:20→17:29)
[2016-12-31] MEDS: LINAGLIPTIN 5 MG TABLET PO SCH ×2 (08:21→17:29)
[2016-12-31] MEDS: ESCITALOPRAM OXALATE (10 MG) 10 MG TABLET PO SCH (08:21)
[2016-12-31] MEDS: MORPHINE SULFATE SR 15 MG TABLET.SA PO SCH ×2 (08:21→21:36)
[2016-12-31] MEDS: Z GUARD REMEDY 2 OZ OINT TP SCH ×2 (08:22→21:36)
[2016-12-31] MEDS: CLOTRIMAZOLE 1% 15 GM TUBE TP SCH ×2 (08:22→17:29)
--- NOTE | 2016-12-31 12:00 | NUR ---
GPS/RN PERCOCET PO/PRN GIVEN FOR PAIN REQUESTED BY THE PT
--- NOTE | 2016-12-31 12:10 | NUR ---
GPS/RN PT REFUSED ACCUCHECK OFFERED X3.
[2016-12-31 20:00] VITALS: BP 124/59
[2016-12-31] MEDS: SENNOSIDES 8.6 MG TABLET PO SCH (21:37)
[2016-12-31] MEDS: INSULIN DETEMIR 100 UNIT/ML CARTRIDGE SQ SCH (21:38)
[2016-12-31] MEDS: TEMAZEPAM 7.5 MG CAPSULE PO PRN (21:39)
--- NOTE | 2016-12-31 21:39 | NUR ---
checked blood sugar 66 mg/dl. levemeir not given. will continue to monitor and reassess.
[2017-01-01 08:00] VITALS: BP 136/78
[2017-01-01] MEDS: BLOOD SUGAR DIAGNOSTIC 1 EACH STRIP IN SCH ×4 (08:21→21:03)
[2017-01-01] MEDS: GLIMEPIRIDE 1 MG TABLET PO SCH (08:21)
[2017-01-01] MEDS: QUETIAPINE FUMARATE 25 MG TABLET PO SCH ×3 (08:28→16:37)
[2017-01-01] MEDS: FERROUS SULFATE (325 MG) 325 MG/TAB TABLET PO SCH ×2 (08:28→16:37)
[2017-01-01] MEDS: PANTOPRAZOLE 40 MG TABLET.DR PO SCH (08:28)
[2017-01-01] MEDS: LINAGLIPTIN 5 MG TABLET PO SCH ×2 (08:28→16:37)
[2017-01-01] MEDS: DIVALPROEX SODIUM 125 MG CAP.SPRINK PO SCH ×3 (08:28→16:37)
[2017-01-01] MEDS: MULTIVIT, IRON, MIN NO. 8, FA 1 TAB TABLET PO SCH (08:33)
[2017-01-01] MEDS: METFORMIN 500 MG TABLET PO SCH ×2 (08:33→16:37)
[2017-01-01] MEDS: ESCITALOPRAM OXALATE (10 MG) 10 MG TABLET PO SCH (08:34)
[2017-01-01] MEDS: MORPHINE SULFATE SR 15 MG TABLET.SA PO SCH ×2 (08:34→21:05)
[2017-01-01] MEDS: AMLODIPINE BESYLATE 10 MG TABLET PO SCH (08:34)
[2017-01-01] MEDS: Z GUARD REMEDY 2 OZ OINT TP SCH ×2 (08:35→21:14)
[2017-01-01] MEDS: CLOTRIMAZOLE 1% 15 GM TUBE TP SCH ×2 (08:35→16:38)
[2017-01-01] MEDS: oxyCODONE/APAP (5/325 MG) 1 UDTAB TABLET PO PRN ×2 (12:11→13:41)
--- NOTE | 2017-01-01 12:15 | NUR ---
GPS/RN PERCOCET PO/PRN GIVEN FOR PAIN REQUESTED BY THE PT
[2017-01-01 16:10] VITALS: BP 110/55
--- NOTE | 2017-01-01 18:09 | NUR ---
GPS/RN PT REFUSED ACCUCHECK OFFERED X3
--- NOTE | 2017-01-01 19:10 | NUR ---
GPS RN OPENING NOTES: RECEIVED PT AWAKE AND IS LAYING IN HER BED. PT IS VOICING THAT SHE HAS L HIP PAIN. PT BREATHING IS UNLABORED W/ EQUAL RISE AND FALL OF THE CHEST. PT IS A/O X 2 ON ROOM AIR WITH SPO2 95%. PT IS MED COMPLIANT. PT DENIES SUICIDE IDEATIONS OR HOMICIDAL IDEATIONS AT THIS TIME. PT HAS NO NEEDS AT THIS TIME. PT EDUCATED ON THE USE OF THE CALL JEROME. SIDE RAILS X2 UP FOR SAFETY. BED KEPT IN LOCKED AND LOWEST POSITION. WILL CONTINUE TO MONITOR AND MAINTAIN SAFETY.
[2017-01-01 20:47] VITALS: BP 130/55
[2017-01-01] MEDS: SENNOSIDES 8.6 MG TABLET PO SCH (21:05)
--- NOTE | 2017-01-01 21:09 | NUR ---
GPS RN NOTES: BLOOD SUGAR WAS 77. NO COVERAGE WAS GIVEN AND HELD LEVEMIR 17 UNITS. WILL CONTINUE TO MONITOR PT.
[2017-01-01] MEDS: INSULIN DETEMIR 100 UNIT/ML CARTRIDGE SQ SCH (21:15)
[2017-01-02] MEDS: oxyCODONE/APAP (5/325 MG) 1 UDTAB TABLET PO PRN (04:37)
--- NOTE | 2017-01-02 04:37 | NUR ---
GPS RN NOTES: PT COMPLAINED OF 8/10 L HIP PAIN. PT REQUESTED FOR PAIN MEDICATION. PT WAS ADMINISTERED PERCOCET 5/325MG PO. WILL CONTINUE TO MONITOR PT.
--- NOTE | 2017-01-02 07:01 | NUR ---
GPS RN CLOSING NOTES: ALL NEEDS WERE ATTENDED AND ANTICIPATED FOR. PT IS IN BED AWAKE. PT WAS GIVEN ORANGE JUICE. PT KEPT CLEAN, DRY, AND COMFORTABLE. CALL JEROME WITHIN REACH. BED KEPT IN LOCKED, LOWEST POSITION, AND SIDE RAILS UP. NO SIGNS OR SYMPTOMS OF DISTRESS NOTED AT THIS TIME. WILL ENDORSE TO AM NURSE FOR ROCIO.
[2017-01-02 08:00] VITALS: BP 150/71
[2017-01-02] MEDS: BLOOD SUGAR DIAGNOSTIC 1 EACH STRIP IN SCH ×2 (08:27→12:00)
[2017-01-02] MEDS: LINAGLIPTIN 5 MG TABLET PO SCH (08:29)
[2017-01-02] MEDS: DIVALPROEX SODIUM 125 MG CAP.SPRINK PO SCH ×2 (08:29→13:23)
[2017-01-02] MEDS: ESCITALOPRAM OXALATE (10 MG) 10 MG TABLET PO SCH (08:31)
[2017-01-02] MEDS: METFORMIN 500 MG TABLET PO SCH (08:31)
[2017-01-02] MEDS: FERROUS SULFATE (325 MG) 325 MG/TAB TABLET PO SCH (08:31)
[2017-01-02] MEDS: MORPHINE SULFATE SR 15 MG TABLET.SA PO SCH (08:31)
[2017-01-02] MEDS: QUETIAPINE FUMARATE 25 MG TABLET PO SCH ×2 (08:31→13:23)
[2017-01-02 08:32] VITALS: BP 150/71
[2017-01-02] MEDS: AMLODIPINE BESYLATE 10 MG TABLET PO SCH (08:32)
[2017-01-02] MEDS: GLIMEPIRIDE 1 MG TABLET PO SCH (08:32)
[2017-01-02] MEDS: MULTIVIT, IRON, MIN NO. 8, FA 1 TAB TABLET PO SCH (08:32)
[2017-01-02] MEDS: PANTOPRAZOLE 40 MG TABLET.DR PO SCH (08:33)
[2017-01-02] MEDS: CLOTRIMAZOLE 1% 15 GM TUBE TP SCH (08:35)
[2017-01-02] MEDS: Z GUARD REMEDY 2 OZ OINT TP SCH (08:38)
[2017-01-02] MEDS: INSULIN REGULAR, HUMAN 100 UNIT/ML 3 ML VIAL SQ PRN (08:41)
--- NOTE | 2017-01-02 13:40 | NUR ---
TRIAGE ASSISTANT NOTE:PATIENT ALERT ,VERBALLY RESPONSIVE,VS STABLE ,DENIES SI/HI /AVH .NO C/O PAIN .DR.SAM CHERY AND NOTIFIED WITH DISCHARGE ORDERS ALL ORDERS CARRIED OUT .ALL BELONGINGS RETURNED TO PATIENT .REPORT GIVEN TO NURSE DIEZ IN [facility] .PATIENT DISCHARGE WITH AMBULANCE .
--- NOTE | 2017-01-02 13:40 | NUR ---
INTEGRITY CONSULTANT NOTE:PATIENT REFUSED DISCHARGE PICTURES .
--- NOTE | 2017-01-02 14:56 | NUR ---
Discharge Note: Patient was discharged to [facility] [address] [place], [address] ([phone]). via med response. Patient's Scott Shipley ([phone]) was notified and was agreeable with the discharge plan. Patient's mood and affect were appropriate upon discharge. Patient denied suicidal and homicidal ideations. Patient was referred to [facility] [address] [place] [address] ([phone]). Facilitated info to IDT team who are in agreement with discharge arrangement. The multidisciplinary exitcare form was done, printed, signed, and given to the patient.
== END 2017-01-02 13:45 | DRG 885 ==
LOC: ER 10:34 → GPS 15:09
PROVIDERS: ADMIT Psychiatry & Neurology Psychiatry; ATTEND Family Medicine
DX: F33.3 Major depressive disorder, recurrent, severe with psychotic symptoms (principal); E44.1 Mild protein-calorie malnutrition; Z68.1 Body mass index [BMI] 19.9 or less, adult; E11.9 Type 2 diabetes mellitus without complications; J44.9 Chronic obstructive pulmonary disease, unspecified; Z79.84 Long term (current) use of oral hypoglycemic drugs; F03.90 Unspecified dementia, unspecified severity, without behavioral disturbance, psychotic disturbance, mood disturbance, and anxiety; F41.9 Anxiety disorder, unspecified; I10 Essential (primary) hypertension; I25.10 Atherosclerotic heart disease of native coronary artery without angina pectoris; Z79.899 Other long term (current) drug therapy; Z87.891 Personal history of nicotine dependence; Z73.6 Limitation of activities due to disability; F39 Unspecified mood [affective] disorder; Z98.890 Other specified postprocedural states
CPT/HCPCS: 36415; 71010-TC; 73502; 80053-TC; 80164-TC; 81000-TC; 82962-TC; 85025-TC; 87081-TC; 87086-TC; 97001-TC; 97530-TC; A4606; A6402; J1650; J1815; Z7610